=== PATIENT | male | born 1970 | race Caucasian/White ===

== ENCOUNTER 2019-01-22 06:14 | Day surgery (SDC) | payer BC ==
[~2019-01-22] VITALS: Ht 180.3 cm; Wt 127.3 kg
[2019-01-22 07:00] VITALS: Ht 180.3 cm; Wt 127.3 kg
[2019-01-22] MEDS ORDERED: EMTR1TAB17 PO (07:11)
[2019-01-22 07:25] VITALS: BP 119/77; PULSE 72; RESP 17
--- NOTE | 2019-01-22 07:29 | PREAC ---
Date/Time of Note Date/Time of Note DATE: 01/22/19 TIME: 07:28 Anesthesia Eval and Record Evaluation Time Pre-Procedure Interview DATE: 01/22/19 TIME: 07:28 Age 48 Sex male NPO: 8 hrs Preoperative diagnosis PUD rectal bleeding Planned procedure EGD colonoscopy Past Medical History Past Medical History: Includes Infection(s): HIV Surgery & Anesthesia Issues No known issue Meds Anticoagulation: No Beta Thalia within 24 hr: No Reason Beta Thalia not given: Pt. not on B-Thalia Reported Medications Emtricitab/Rilpiviri/Tenof Ala (Odefsey Tablet) 1 Each Tablet, 1 EACH PO, TAB 01/22/19 Meds reviewed: Yes Allergies Coded Allergies: No Known Drug Allergies (Verified Allergy, Unknown, 01/22/19) Allergies Reviewed: Yes Labs/Studies Labs Reviewed: Reviewed by anesthesiologist test: N/A Studies: ECG (n/a), CXR (n/a) Pre-procedure Exam Last vitals Vital Signs Date Temp Pulse Resp B/P (MAP) Pulse Ox O2 O2 Flow FiO2 Time Delivery Rate 01/22/19 97.6 72 17 119/77 97 Room Air 07:25 (91) Airway: Adequate mouth opening Mallampati: Mallampati I Teeth: Normal Lung: Normal Heart: Normal ASA Physical Status ASA physical status: 2 Emergency: None Planned Anesthetic General/MAC: MAC Planned Pain Management Parenteral pain med Pre-operative Attestations Prior to commencing anesthesia and surgery, the patient was re-evaluated, there was verification of: *The patient's identity *The results of appropriate recent lab work and preoperative vital signs *The above evaluation not changing prior to induction *Anesthetic plan, risk benefits, alternative and complications discussed with patient/family; questions answered; patient/family understands, accepts and wishes to proceed. GALDINO KEMP MD January 22, 2019 07:29
[2019-01-22] MEDS ORDERED: ONDANSETRON 4 MG INJ IV PRN (08:00)
[2019-01-22] MEDS ORDERED: FENTAnyl 50 MCG/ML VIAL ONE (08:07)
[2019-01-22] MEDS ORDERED: PROPOFOL 20 ML ONE (08:07)
[2019-01-22 09:10] VITALS: BP 134/86; PULSE 75; RESP 18
--- NOTE | 2019-01-22 14:40 | PAC ---
Date/Time of Note Date/Time of Note DATE: 01/22/19 TIME: 14:40 Post-Anesthesia Notes Post-Anesthesia Note Last documented vital signs Vital Signs Date Temp Pulse Resp B/P (MAP) Pulse Ox O2 O2 Flow FiO2 Time Delivery Rate 01/22/19 97.7 75 18 134/86 94 Room Air 09:10 (102) 01/22/19 97.6 07:25 Activity: WNL Respiratory function: WNL Cardiovascular function: WNL Mental status: Baseline Pain reasonably controlled: Yes Hydration appropriate: Yes Nausea/Vomiting absent: No GALDINO KEMP MD January 22, 2019 14:40
== END 2019-01-22 12:51 | disposition home or self-care (01) ==
LOC: GIL 06:14
PROVIDERS: ATTEND Internal Medicine Gastroenterology
DX: D12.3 Benign neoplasm of transverse colon (principal); K29.50 Unspecified chronic gastritis without bleeding; K64.8 Other hemorrhoids; Z80.0 Family history of malignant neoplasm of digestive organs
CPT/HCPCS: 43239; 45380; 88305; 88312; J3010